=== PATIENT | female | born 1945 | race Caucasian/White ===

== ENCOUNTER 2019-11-05 15:03 | Emergency (ER) | payer MEDICARE, SELFPAY ==
[2019-11-05 15:06] VITALS: BP 179/73; PULSE 75; RESP 20; TEMP 36.8; O2SAT 97; BMI 24.7
--- NOTE | 2019-11-05 15:14 | ED_ITS ---
Entered by Genia Carlin, acting as scribe for HPI - Abdominal Pain General: Chief Complaint: Abdominal Pain Stated Complaint: abd pain Time Seen by Provider: 11/05/19 15:14 Source: patient Mode of arrival: ambulatory History of Present Illness: HPI narrative: 74 yo female presents to ED with complaints of abdominal pain. She said this began 2 weeks ago. She said it feels like she has been punched in the stomach. She said it hurts all over but this afternoon it has settled in her RLQ. She said the pain encompasses her stomach and will even make the tops of her legs and bowels hurt. She denies nausea and vomiting. She said she has been chilling. She said when she empties her bladder it will hurt my gut . MD elicited complaint: abdominal pain Pertinent past history: diverticulitis Onset (ago): week(s) (2) Pain Consistency: constant Location: Diffuse and RLQ Severity: severe Quality: aching and other Radiation: none Associated Symptoms: Denies coffee ground emesis, constipation, GI cramping, diarrhea, dysuria, fever(s), hematochezia, hematuria, hematemesis, melena, nausea, syncope and vomiting Review of Systems General: Reports: other (negative unless marked) Const: Denies: fever, body aches, fatigue, malaise or diaphoresis Eyes: Denies: change in vision or blurry vision ENMT: Denies: throat pain, painful swallowing, hoarseness, ear pain, ear discharge, Change in hearing or nasal discharge Card: Denies: chest pain, palpitations, irregular heart rhythm, syncope, pre- syncope, shortness of breath on exertion or shortness of breath when lying down Resp: Denies: shortness of breath, productive cough, non-productive cough, wheezing, coughing up blood or chest congestion GI: Denies: nausea, vomiting, vomiting blood, coffee grounds in vomit, diarrhea, constipation, cramping, blood in stool or black tarry stool : Denies: flank pain, painful urination, urinary frequency, urinary urgency, decreased urine ouput, urinary incontinence or blood in urine Musc: Denies: neck pain, back pain, extremity pain, extremity swelling, joint pain, joint swelling, joint warmth or joint stiffness Skin/Breast: Denies: rash, skin tenderness or yellow skin Neuro: Denies: headache, numbness in extremities, weakness in extremities, changes in sensation, lack of coordination, difficulty walking, dizziness, vertigo or confusion Endo: Denies: excessive thirst, tired all the time, cold intolerance, excessive sweating, flushing or hot flashes Alfredo/Lymph: Denies: easy bruising, easy bleeding, petechiae or enlarged lymph nodes All/Imm: Denies: hives, throat swelling, tongue swelling, facial swelling or acute wheezing PFSH ED PFSH: Statuses (acute, chronic, etc) shown below reflect problem list status as previously entered and may not be historically accurate Social History Smoking and tobacco status: never smoked Procedures Intubation Mg Given: 20 Mg Given: 200 Course Vital Signs: Vital signs: Vital Signs Temperature 98.3 F 11/05/19 15:06 Pulse Rate 75 11/05/19 15:06 Respiratory Rate 18 11/05/19 15:41 Blood Pressure 179/73 11/05/19 15:06 Pulse Oximetry 98 11/05/19 15:41 MDM - Abdominal Pain MDM Narrative: Medical decision making narrative: Miriam is a very nice 74-year-old female who comes in with a 2 to 3-day history of lower abdominal pain. It is described as an ache. She has no fever, chills, no nausea or vomiting or dysuria. Her CT scan is diagnostic for diverticulitis without abscess or perforation. On exam she has no sign of peritonitis. Her labs are unremarkable except for a leukocytosis. I reviewed the case in full with Dr. Correa who assures me he can see the patient in follow-up. I did offer to admit the patient but she declines. As she is tolerating orals well I believe she can go home and take oral antibiotics. She will be given a dose of IV antibiotics before discharge as well as oral. She will follow a clear liquid diet and assures me that she will return here if she worsens. She is been made aware of the possible complications including rupture and need for surgery and she understands. She understands this can happen at home as well as in the hospital. At this time she would like to be discharged though and follow-up with Dr. Correa. Again the case was reviewed with Dr. Correa and he assures me that he will see the patient in his office for follow-up. Lab Data: Labs: Lab Results 11/05/19 11/05/19 11/05/19 Range/Units 15:30 15:30 15:41 WBC 15.2 H (4.0-10.0) 10^3/ uL RBC 4.43 (4.1-5.3) 10^6/u L Hgb 12.9 (11.5-15.3) g/dL Hct 40.5 (37.0-47.0) % MCV 91.4 (81-99) fL MCH 29.1 (28.0-34.0) pg MCHC 31.9 (30.0-36.0) g/dL RDW 12.3 (12.1-15.1) % Plt Count 359 (130-400) 10^3/c mm MPV 10.2 (7.4-10.4) fL Neut % (Auto) 72.8 % Lymph % (Auto) 15.8 % [place] % (Auto) 8.1 % Eos % (Auto) 2.4 % Baso % (Auto) 0.4 % Neut # (Auto) 11.1 H (1.8-7.7) 10^3/u L Lymph # (Auto) 2.4 (0.8-4.8) 10^3/u L [place] # (Auto) 1.2 H (0.2-0.9) 10^3/u L Eos # (Auto) 0.4 (0.0-0.8) 10^3/u L Baso # (Auto) 0.1 (0.0-0.1) 10^3/u L Nucleated RBC % (a uto) 0 % Nucleated RBCs # 0.0 /100WBC Sodium 137 (136-145) mmol/L Potassium 4.0 (3.5-5.1) mmol/L Chloride 99 (98-107) mmol/L Carbon Dioxide 25 (22-29) mmol/L Anion Gap 17.0 (5-19) BUN 11 (8-23) mg/dL Creatinine 0.7 (0.5-0.9) mg/dL Glucose 108 H (74-106) mg/dL Calcium 9.9 (8.8-10.2) mg/Dl Magnesium 2.3 (1.7-2.3) mg/dL Total Bilirubin 0.2 (0.15-1.2) mg/dL AST 25 (0-32) U/L ALT 25 (0-33) U/L Alkaline Phosphata se 159 H (35-105) IU/L Total Protein 8.0 (6.6-8.7) g/dL Albumin 4.7 (3.5-5.2) g/dL Globulin 3.3 (1.3-4.6) g/dL Lipase 37 (13-60) U/L Urine Color Yellow (Yellow) Urine Appearance Clear (CLEAR) Urine pH 6 (5-7) Ur Specific Gravit y 1.010 (1.005-1.030) Urine Protein Neg (Negative) Urine Glucose (UA) Norm (Normal) Urine Ketones 1+ H (Negative) Urine Occult Blood 2+ H (Negative) Urine Nitrate Negative (Negative) Urine Bilirubin Neg (NEGATIVE) Urine Urobilinogen Norm (Negative) mg/dL Ur Leukocyte Chrissy ase Trace H (Negative) Urine RBC 0-4 H (0-2) /hpf Urine WBC 5-10 H (0-5) /hpf Ur Squamous Epith Cells 10-15 H (0-5) Urine Bacteria 2+ H (NONE) Discharge Plan Discharge Patient Disposition: Home, Self-Care Clinical Impression: Diverticulitis Condition: Stable Prescriptions: New Zofran 4 mg tablet 4 mg PO DAILY PRN (Reason: nausea and vomiting) 5 Days RF: 0 Flagyl 500 mg tablet 500 mg PO TID 10 Days Qty: 30 RF: 0 Cipro 500 mg tablet 500 mg PO BID Qty: 20 RF: 0 [place] 5-325 mg tablet 1 tab PO Q8H Qty: 10 RF: 0 No Action metoprolol succinate 50 mg tablet extended release 24 hr 25 mg PO BID RF: 0 meloxicam 15 mg tablet 15 mg PO DAILY RF: 0 simvastatin 40 mg tablet 40 mg PO DAILY RF: 0 levothyroxine 75 mcg tablet 75 mcg PO DAILY RF: 0 citalopram 20 mg tablet 20 mg PO DAILY RF: 0 pantoprazole 40 mg tablet,delayed release (DR/EC) 40 mg PO DAILY RF: 0 montelukast 10 mg tablet 10 mg PO DAILY RF: 0 zolpidem 10 mg tablet 10 mg PO BEDTIME PRN (Reason: Sleep) RF: 0 metformin 500 mg tablet extended release 24 hr 500 mg PO DAILY RF: 0 multivitamin Tablet 1 tab PO DAILY RF: 0 Kiana Allergy 180 mg Tablet 180 mg PO BID PRN (Reason: unknown) RF: 0 Aspir-81 81 mg Tablet,Delayed Release (Dr/Ec) 81 mg PO DAILY RF: 0 Discharge Orders: Discharge Order (Routine); Ordered 11/05/19 Ordered By: Bebe Francois Referrals: Jem Correa MD [Family Provider] - Discharge Diet: Follow a clear liquid diet and do not advance until instructed further by Dr. Correa. Discharge Activity: Increase activity as tolerated Patient Instructions: Diverticulitis, Diverticulitis (ED), Diverticulitis Diet (ED) Activity Restrictions/Additional Instructions: Please return to the ER immediately for any of the signs or symptoms listed on your discharge instruction sheets, worsening/changing of your symptoms, you are not getting better as quickly as expected, or for ANY other cause or concerns. You have been offered admission to the hospital but have declined so if your symptoms change or worsen in any way please return to the ER immediately for recheck and further evaluation and care. Be certain to follow-up with Dr. Correa on Saturday or return to the ER sooner if your symptoms worsen. Follow a clear liquid diet until instructed further by Dr. Correa. Coding Level of Care Code ED Welder/Fabricator for g Fwd The documentation recorded by the Raegan prado Valerie R, accurately reflects the service I personally performed and the decisions made by Alessandro garibay Eli N Nov 05, 2019 15:03
--- NOTE | 2019-11-05 15:34 | CT_ITS ---
WS: [id number] CT scan of the abdomen and pelvis with IV contrast. Additional two-dimensional coronal and sagittal r econstruction was performed. 11/05/2019 Clinical Data: Abdominal Pain Comparison: CT abdomen and pelvis, 01/07/2016. DLP: 638.[address] scans at [facility] use at least one of these dose optimization techniques: automat ed exposure control; mA and/or kV adjustment per patient size (includes targeted exams where dose is matched to clinical indication); or iterative reconstruction. Findings: The lower lungs show no nodules, masses or effusions. There is a small hiatal hernia. The liver, gallbladder, spleen, adrenal glands and pancreas are normal. The kidneys show equal bilateral contrast excretion with dental cortical cyst but no masses, hydronep hrosis or renal calculi.. The abdominal aorta is normal in size with minimal calcification in the wall.. No appendicitis is seen. No adenopathy, ascites, mass, obstruction or free air is seen. The sigmoid c olon shows pericolic stranding and thickening consistent with acute diverticulitis. There is no absce ss. The bladder and bladder are unremarkable. No inguinal hernia is seen. The bones of the lower thorax, lumbar spine, pelvis, and hips are normal. CT/CT abdomen pelvis w con* [id number] Impression: Sigmoid diverticulitis without abscess or free air.
[2019-11-05] MEDS: sodium chloride 0.9% 1,000 ML 999 ML IV (15:40)
[2019-11-05 15:41] VITALS: RESP 18; O2SAT 98
[2019-11-05] MEDS: morphine 4 mg/mL SDV 1 mL IVP (15:41)
[2019-11-05] MEDS: ondansetron 2 mg/ML SDV 2 mL 4 MG IVP (15:42)
[2019-11-05 15:47] LABS: Basophils # 0.1 10^3/uL (0.0-0.1); Basophils % 0.4 %; Eosinophils # 0.4 10^3/uL (0.0-0.8); Eosinophils % 2.4 %; Hematocrit 40.5 % (37.0-47.0); Hemoglobin 12.9 g/dL (11.5-15.3); Lymphocytes # 2.4 10^3/uL (0.8-4.8); Lymphocytes % 15.8 %; Mean Corpuscular HGB Conc 31.9 g/dL (30.0-36.0); Mean Corpuscular Hemoglobin 29.1 pg (28.0-34.0); Mean Corpuscular Volume 91.4 fL (81-99); Mean Platelet Volume 10.2 fL (7.4-10.4); Monocytes # 1.2 10^3/uL (0.2-0.9); Monocytes % 8.1 %; Neutrophils # 11.1 10^3/uL (1.8-7.7); Neutrophils % 72.8 %; Nucleated Red Blood Cells % 0 %; Platelet Count 359 10^3/cmm (130-400); Red Blood Count 4.43 10^6/uL (4.1-5.3); Red Cell Distribution Width 12.3 % (12.1-15.1); White Blood Count 15.2 10^3/uL (4.0-10.0)
[2019-11-05 16:01] LABS: Alanine Aminotransferase 25 U/L (0-33); Albumin Level 4.7 g/dL (3.5-5.2); Alkaline Phosphatase 159 IU/L (35-105); Aspartate Amino Transferase 25 U/L (0-32); Blood Urea Nitrogen 11 mg/dL (8-23); Calcium 9.9 mg/Dl (8.8-10.2); Carbon Dioxide 25 mmol/L (22-29); Chloride 99 mmol/L (98-107); Globulin 3.3 g/dL (1.3-4.6); Glucose 108 mg/dL (74-106); Lipase 37 U/L (13-60); Magnesium 2.3 mg/dL (1.7-2.3); Sodium 137 mmol/L (136-145); Total Bilirubin 0.2 mg/dL (0.15-1.2)
[2019-11-05 16:01] LABS: Add Urine Microscopic? YES; Bilirubin Urine Neg (NEGATIVE); Blood Urine 2+ (Negative); Glucose Urine UA Norm (Normal); Ketones Urine 1+ (Negative); Leukocyte Esterase Urine Trace (Negative); Nitrate Urine Negative (Negative); Protein Urine Neg (Negative); Urine Appearance Clear (CLEAR); Urine Color Yellow (Yellow); Urobilinogen Urine Norm (Negative); pH Urine 6 (5-7)
[2019-11-05 16:17] LABS: Bacteria Urine 2+; RBC Urine 0-4 /hpf (0-2)
[2019-11-05 16:18] LABS: Add Urine Culture? No
[2019-11-05] MEDS: iohexol 300 mg/mL 100 mL Btl 95 ML IV (16:18)
[2019-11-05] MEDS: piperacillin-tazobactam 3.375 GM in sodium chloride 0.9% (plus) 50 ML IV (16:58)
[2019-11-05] MEDS: ciprofloxacin 500 mg Tablet PO (17:20)
[2019-11-05] MEDS: metroNIDAZOLE 500 MG Tablet PO (17:22)
[2019-11-05 17:54] VITALS: BP 105/61; PULSE 68; RESP 20; O2SAT 98
== END 2019-11-05 17:55 | disposition home or self-care (01) ==
PROVIDERS: Emergency Provider Emergency Medicine; Family Provider Family Medicine
DX: K57.92 Diverticulitis of intestine, part unspecified, without perforation or abscess without bleeding (principal); Z79.84 Long term (current) use of oral hypoglycemic drugs; Z79.82 Long term (current) use of aspirin
CPT/HCPCS: 74177; 80053; 81003; 83690; 83735; 85025; 96360; 96365; 96374; 96375; 99282; J2270; J2405; J2543; J7030; Q9967

== ENCOUNTER → 2020-02-24 10:42 | Outpatient (BNVA) | payer MEDICARE, SELFPAY | PROVIDERS: Family Provider Family Medicine; Referring Provider Family Medicine; Visit Provider Orthopaedic Surgery | DX: M25.542 Pain in joints of left hand (principal); M13.842 Other specified arthritis, left hand | CPT/HCPCS: 73130 ==

== ENCOUNTER 2020-02-24 11:37 | Outpatient (CLI) | payer MEDICARE, SELFPAY | END 2020-02-24 11:38 | disposition home or self-care (01) | LOC: SPT 11:39 | PROVIDERS: Family Provider Family Medicine; Visit Provider Orthopaedic Surgery | DX: Z46.89 Encounter for fitting and adjustment of other specified devices (principal); M18.12 Unilateral primary osteoarthritis of first carpometacarpal joint, left hand | CPT/HCPCS: 73130; L3924 ==

== ENCOUNTER 2020-08-08 10:01 | Outpatient (CLI) | payer MEDICARE, SELFPAY ==
--- NOTE | 2020-08-08 10:08 | CT_ITS ---
WS: [id number] LDCT LUNG CANCER SCREENING HISTORY: HX OF TOBACCO USE TECHNIQUE: Axial imaging performed from the apices to 1 cm below the costophrenic angles. Coronal and sagittal reformats are submitted with axial MIP series. All CT scans at [facility] use at least one of these dose optimization techniques: automated exposure control; mA and/or kV adjustment per patient size (includes targeted exams where dose is matched to clinical indication); or iterativ e reconstruction. DLP: 55.05 mGy.cm DIvol: 1.52 mGy COMPARISON: 04/10/2011 Diagnostic quality: Satisfactory Lung Nodules: No pulmonary nodule or endobronchial lesions. Lungs: Hyperexpanded lungs. Minimal bronchiectasis medial RIGHT upper lobe. Linear scar at the RIGHT middle lobe. Heart: Normal size heart. No pericardial effusion. No significant coronary artery calcification. Other findings: Mild atherosclerosis aorta. CT/CT lung screening [id number] IMPRESSION: LUNG-RADS: 1-Negative FOLLOW UP: 12 Month: Continue annual screening with LDCT OTHER FINDINGS (S MODIFIER): None.
== END 2020-08-08 10:02 | disposition home or self-care (01) ==
PROVIDERS: PCP Family Medicine; Visit Provider Family Medicine
DX: Z12.2 Encounter for screening for malignant neoplasm of respiratory organs (principal); Z87.891 Personal history of nicotine dependence; I70.0 Atherosclerosis of aorta
CPT/HCPCS: G0297

== ENCOUNTER 2021-06-09 08:34 | Outpatient (CLI) | payer MEDICARE, SELFPAY ==
[2021-06-09 09:13] VITALS: BP 136/72; PULSE 76; RESP 14; TEMP 37.2; O2SAT 93
[2021-06-09 09:28] VITALS: BP 147/86; PULSE 73; RESP 16; O2SAT 92
[2021-06-09 10:33] VITALS: BP 140/78; PULSE 65; TEMP 36.6; O2SAT 95
== END 2021-06-09 08:35 | disposition home or self-care (01) ==
LOC: OPS 08:36
PROVIDERS: PCP Family Medicine; Visit Provider Nurse Practitioner
DX: U07.1 COVID-19 (principal)
CPT/HCPCS: 96365

== ENCOUNTER 2022-05-01 13:00 | Outpatient (CLI) | payer MEDICARE, SELFPAY | END 2022-05-01 13:01 | disposition home or self-care (01) | LOC: SLEEP 05-02 12:48 | PROVIDERS: PCP Family Medicine; Visit Provider Family Medicine | DX: G47.10 Hypersomnia, unspecified (principal); G47.33 Obstructive sleep apnea (adult) (pediatric) | CPT/HCPCS: G0399 ==

== ENCOUNTER 2022-08-03 13:40 | Outpatient (CLI) | payer MEDICARE, SELFPAY ==
--- NOTE | 2022-08-03 13:44 | XR_ITS ---
WS: [id number] DEXA (DUAL ENERGY X-RAY ABSORPTIOMETRY) Bone mineral density was performed using a Whittl machine. HISTORY: POSTMENOPAUSAL COMPARISON: None available. Lumbar spine BMD (L1-L4): 0.942 g/cm2 T score: -2.0 Z score: -0.1 Total hip BMD: Left: 0.649 g/cm2. T score: -2.8 Z score: -1.0 Right: 0.696 g/cm2. T score: -2.5 Z score: -0.6 10 year probability of a major osteoporotic fracture is 45.7%. XR/XR DEXA axial skeleton* [id number] IMPRESSION: OSTEOPOROSIS based upon the WHO classification for females.
== END 2022-08-03 13:41 | disposition home or self-care (01) ==
LOC: RAD 13:40
PROVIDERS: PCP Family Medicine; Visit Provider Nurse Practitioner Family
DX: Z78.0 Asymptomatic menopausal state (principal); M81.0 Age-related osteoporosis without current pathological fracture
CPT/HCPCS: 77080

== ENCOUNTER 2023-03-13 08:03 | Outpatient (CLI) | payer MEDICARE, SELFPAY ==
--- NOTE | 2023-03-13 | ECG_ITS ---
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 Interpretive Statements NAME OF STUDY: EXERCISE SESTAMIBI STRESS TEST INDICATION: [Chest Pain, ] EXERCISE DATA: The patient was exercised by Robb protocol. Baseline heart rate was 80 beats per minute. Baseline blood pressure was 157/81 millimeters of mercury. Target heart rate was 122 beats per minute. Maximum heart rate achieved was 142 which was 116% of the target heart rate. Maximum blood pressure was 207/61 millimeters of mercury. Total exercise time was 4 minutes 20 seconds. Maximum METs achieved was 7. The reason for ending the test was maximal effort achieved. The patient complained of shortness of breath during the stress test, which then resolved at the end of the test. ELECTROCARDIOGRAM: BASELINE: Showed sinus rhythm, normal axis, with LVH changes. [] EXERCISE: At the peak exercise level, [] borderline [address] depressions in inferior leads II, III, aVF and leads V5 V6. [] RECOVERY: During the recovery period, heart rate dropped appropriately. No significant ST-T changes in the recovery suggestive of ischemia noted. [] CONCLUSION: 1. Exercise capacity is fair. 2. Heart rate response was appropriate 3. Blood pressure response was hypertensive. 4. Symptoms not suggestive of ischemia. 5. Electrocardiogram portion of the stress test has borderline ST depressions seen in above mentioned leads, however will rely on imaging results as has baseline LVH changes on EKG. 6. Nuclear scan will be documented separately. Electronically Signed On 03-16-2023 22:04:29 CDT by Dannie Linda M.D. [id number]
[2023-03-13 09:21] VITALS: BMI 23.9
--- NOTE | 2023-03-13 09:22 | NMCV_ITS ---
NM vicente perf SPECT r/s* [id number] Lucas Domingo Age: 77 Gender: F : 1945 Exam Date: 03/13/2023 09:22 Ordering Phys: Triny Bar Technologist: AYAN Olmedo Exam Location: [facility] Indications: CHEST PAIN STRESS TEST Please see separate stress test report in [facility] for full findings IMAGE PROTOCOL Rest/Stress 1 Exercise Day Radiopharmaceutical Dose (mCi) Administration Site Administered by Rest: Tc-99m 10.3 IV AYAN Richard Sestamibi Stress:Tc-99m 32.6 IV AYAN Richard Sestamibi Rest: 13-Mar-2023 60 Discovery 630 Stress: 13-Mar-2023 30 Discovery 630 Radiopharmaceutical was injected at 89 % maximum heart rate. Images obtained in supine and prone position. SPECT RESULTS Technical Quality: Excellent Raw Data Analysis: Normal Image Corrections: No attenuation or motion correction applied Summed Stress Score: 2 Summed Rest Score: 0 Summed Difference Score: 2 PERFUSION FINDINGS SPECT images demonstrate homogeneous tracer distribution throughout the myocardium. FUNCTIONAL RESULTS (calculated via Gated SPECT) Stress Image LV EF (%): 95 Stress EDV (mL):64 TID: 0.7 Stress ESV (mL):3 FUNCTIONAL FINDINGS: There is normal left ventricular systolic function. IMPRESSIONS 1. Normal myocardial perfusion imaging with no evidence of ischemia 2. LV systolic function is normal. Dannie Linda MD (Electronically Signed) Final Date: 14 Mar 2023 13:11 S
[2023-03-13 10:25] VITALS: BP 166/87; PULSE 90
== END 2023-03-13 08:04 | disposition home or self-care (01) ==
LOC: CDL 08:07
PROVIDERS: PCP Family Medicine; Visit Provider Physician Assistant
DX: R07.9 Chest pain, unspecified (principal)
CPT/HCPCS: 36415; 78452; 93017; A9500

== ENCOUNTER 2023-07-14 08:22 | Emergency (ER) | payer MEDICARE, SELFPAY ==
[2023-07-14 08:23] VITALS: BP 139/82; PULSE 100; RESP 19; TEMP 37.7; O2SAT 92; BMI 23.0
--- NOTE | 2023-07-14 08:30 | ECG_ITS ---
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 Measurements Intervals [place] Rate: 97 P: 52 HI: 193 QRS: 3 QRSD: 87 T: 30 QT: 355 QTc: 452 Interpretive Statements SINUS RHYTHM LEFT VENTRICULAR HYPERTROPHY AND ST-T CHANGE [VOLTAGE CRITERIA PLUS ST/T ABNORMALITY] Compared to ECG 01/30/2019 13:50:29 Sinus bradycardia no longer present ST (T wave) deviation still present Electronically Signed On 07-14-2023 11:59:11 CDT by Esthela Adhikari M.D. [id number]
--- NOTE | 2023-07-14 08:31 | XRR_ITS ---
PROCEDURE INFORMATION: Exam: XR Chest Exam date and time: 07/14/2023 9:06 AM Age: 77 years old Clinical indication: Shortness of breath; Prior surgery; Surgery date: 6+ months; Surgery type: Carlos mastectomy; Additional info: SOB TECHNIQUE: Imaging protocol: Radiologic exam of the chest. Views: 1 view. COMPARISON: CT lung screening [id number] 08/08/2020 10:15 AM FINDINGS: Tubes, catheters and devices: Surgical clips projecting over the lower left lateral chest wall. Lungs: Unremarkable. No consolidation. Pleural spaces: Unremarkable. No pleural effusion. No pneumothorax. Heart/Mediastinum: Unremarkable. No cardiomegaly. Bones/joints: Mild thoracic scoliosis. XR/XR chest 1V portable [id number] IMPRESSION: No acute disease.
[2023-07-14] MEDS: acetaminophen 500 mg Tablet 1000 MG PO (08:38)
--- NOTE | 2023-07-14 08:39 | ED_ITS ---
HPI - SOB/Dyspnea General: Chief Complaint: Shortness of Breath/Dyspnea Stated Complaint: SOB Time Seen by Provider: 07/14/23 08:24 Source: patient Mode of arrival: ambulatory Limitations: no limitations History of Present Illness: HPI Narrative: 77-year-old female has a history of COPD states she has been on a cruise just got back yesterday she states that she started having fevers chills body aches along with nonproductive cough. States she has had some increasing wheezing and shortness of breath as well. Denies any vomiting or diarrhea denies any worsening improving factors. Associated symptoms: Reports fever(s); Deny abdominal pain, chest pain, nausea or vomiting Review of Systems Const: Reports: fever(s), chills and body aches; Denies: change in appetite ENMT: Reports: throat pain; Denies: dental pain Card: Denies: chest pain Resp: Reports: dyspnea, non-productive cough and wheezing GI: Denies: abdominal pain, nausea, vomiting or diarrhea : Denies: dysuria Musc: Denies: neck pain or back pain Skin/Breast: Denies: rash Neuro: Denies: headache(s) PFSH ED PFSH: Social History Smoking and tobacco status: never smoked Alcohol intake: never Substance/Drug Use: never Physical Exam Const: COMMON NORMALS: patient oriented x3 HENMT: COMMON NORMALS: normocephalic and atraumatic HEAD & SCALP: normocephalic and atraumatic Eye: COMMON NORMALS: Equal, round and reactive pupils present and EOMs intact bilaterally PUPIL: Yes Equal, round and reactive pupils present Neck/C-Spine: COMMON NORMALS: full ROM and supple Chest: COMMONS NORMALS: normal inspection of the chest and normal palpation of entire chest wall Resp: COMMON NORMALS: normal respiratory effort, No retractions and No use of accessory muscles AUSCULTATION: wheezes Cardio: COMMON NORMALS: regular rate, regular rhythm and No murmurs present (Cardio) RATE: regular rate RHYTHM: regular rhythm GI: COMMON NORMALS: Normal to inspection, nondistended, normoactive bowel sounds present, Soft to palpation, non-tender and no masses PALPATION: Yes Soft to palpation Extremity: COMMON NORMALS: normal to inspection and full ROM Neuro: COMMON NORMALS: patient oriented x3, moves all extremities and no focal motor deficits Psych: COMMON NORMALS: mental status grossly normal, Normal thought process present and cooperative THOUGHT PROCESS: Normal thought process present Skin: COMMON NORMALS: no rashes or lesions noted and no wounds GENERAL SKIN EXAM: no rashes or lesions noted Course Vital Signs: Vital signs: Vital Signs Temperature 99.8 F H 07/14/23 08:23 Pulse Rate 87 07/14/23 09:05 Respiratory Rate 18 07/14/23 09:01 Blood Pressure 131/70 07/14/23 08:58 Pulse Oximetry 92 07/14/23 09:01 Oxygen Delivery Me thod Room Air 07/14/23 09:01 MDM - SOB/Dyspnea Medical Decision Making Patient presents for likely upper restaurant infection while in the bronchitis she is improved here after breathing treatment we will place her on albuterol along with prednisone and Keflex. We will send off a full viral panel as well she is stable for discharge she is to follow-up with PCP and return if worsening she understands agrees plan. Medical Records I reviewed the patient's medical records. Lab Data I reviewed the patient's lab results. 07/14/23 08:45 07/14/23 08:45 Labs/Radiology: Radiology Impressions Chest X-Ray 07/14/23 08:31 IMPRESSION: No acute disease. Laboratory Results WBC 9.15 10^3/uL (3.29-11.43) 07/14/23 08:45 RBC 4.14 10^6/uL (3.85-5.65) 07/14/23 08:45 Hgb 11.50 g/dL (11.27-16.99) 07/14/23 08:45 Hct 36.8 % (36-47) 07/14/23 08:45 MCV 88.9 fl (85-98) 07/14/23 08:45 MCH 27.8 pg (27-33) 07/14/23 08:45 MCHC 31.3 g/dL (30-55) 07/14/23 08:45 RDW 13.5 % (12.1-15.1) 07/14/23 08:45 Plt Count 222 10^3/cmm (157-399) 07/14/23 08:45 MPV 10.3 fL (7.4-10.4) 07/14/23 08:45 Neut % (Auto) 76.8 % 07/14/23 08:45 Lymph % (Auto) 13.9 % 07/14/23 08:45 [place] % (Auto) 8.7 % 07/14/23 08:45 Eos % (Auto) 0.0 % 07/14/23 08:45 Baso % (Auto) 0.2 % 07/14/23 08:45 Neut # (Auto) 7.02 10^3/uL (1.8-7.7) 07/14/23 08:45 Lymph # (Auto) 1.3 10^3/uL (0.8-4.8) 07/14/23 08:45 [place] # (Auto) 0.8 10^3/uL (0.2-0.9) 07/14/23 08:45 Eos # (Auto) 0.0 10^3/uL (0.0-0.8) 07/14/23 08:45 Baso # (Auto) 0.0 10^3/uL (0.0-0.1) 07/14/23 08:45 Nucleated RBC % (auto) 0 % 07/14/23 08:45 Nucleated RBCs # 0.0 /100WBC 07/14/23 08:45 Sodium 137 mmol/L (136-145) 07/14/23 08:45 Potassium 3.9 mmol/L (3.5-5.1) 07/14/23 08:45 Chloride 102 mmol/L (98-107) 07/14/23 08:45 Carbon Dioxide 24 mmol/L (22-29) 07/14/23 08:45 Anion Gap 14.9 (5-19) 07/14/23 08:45 BUN 12 mg/dL (8-23) 07/14/23 08:45 Creatinine 0.8 mg/dL (0.5-0.9) 07/14/23 08:45 GFR Calculation Not Reportable 07/14/23 08:45 Glucose 141 mg/dL (65-115) H 07/14/23 08:45 Calculated Osmolality 286 mOsm/kg (285-295) 07/14/23 08:45 Calcium 9.1 mg/dL (8.5-10.5) 07/14/23 08:45 Total Bilirubin 0.3 mg/dL (0.15-1.2) 07/14/23 08:45 AST 24 U/L (0-32) 07/14/23 08:45 ALT 20 U/L (0-33) 07/14/23 08:45 Alkaline Phosphatase 113 U/L (35-105) H 07/14/23 08:45 NT-Pro-B Natriuret Pep 180 pg/mL (0-450) 07/14/23 08:45 Total Protein 7.5 g/dL (6.6-8.7) 07/14/23 08:45 Albumin 4.2 g/dL (3.5-5.2) 07/14/23 08:45 Globulin 3.3 g/dL (1.3-4.6) 07/14/23 08:45 SARS-CoV-2 Ag (Rapid) Negative (Negative) 07/14/23 08:40 All radiology interpretation(s) finalized by discharge EKG Data EKG 1: I personally reviewed and interpreted this EKG as follows: EKG Interpretation Date: 07/14/23 EKG interpretation time: 08:33 Interpretation: nsr hr [address] or t wave abnormalities qrs 87 qtc 409 Discharge Plan Discharge Patient Disposition: Home Clinical Impression: Upper respiratory infection Condition: Stable Prescriptions: New cephalexin 500 mg capsule 500 mg PO TID 7 Days Qty: 21 0RF prednisone 50 mg tablet 50 mg PO DAILY Qty: 5 0RF albuterol sulfate 90 mcg/actuation HFA aerosol inhaler 2 inh INHALATION Q6H PRN (Reason: shortness of breath or wheezing) Qty: 8 0RF No Action (DME) CMC brace Qty: 1 0RF Rx Instructions: As directed metoprolol succinate 50 mg tablet extended release 24 hr 50 mg PO DAILY levothyroxine 75 mcg tablet 75 mcg PO DAILY citalopram 20 mg tablet 20 mg PO DAILY montelukast 10 mg tablet 10 mg PO DAILY zolpidem 10 mg tablet 10 mg PO BEDTIME PRN (Reason: Sleep) multivitamin Tablet 1 tab PO DAILY fexofenadine [Kiana Allergy] 180 mg Tablet 180 mg PO DAILY atorvastatin 40 mg tablet 40 mg PO DAILY amlodipine 5 mg tablet 5 mg PO DAILY Tylenol Ex Str Rapid Release 500 mg Tablet 1,000 mg PO Q6H PRN (Reason: Pain) esomeprazole magnesium 40 mg capsule,delayed release(DR/EC) 40 mg PO DAILY ibuprofen 200 mg Tablet 400 - 800 mg PO Q6H PRN (Reason: Pain) metformin 750 mg tablet extended release 24 hr 750 mg PO QAM Discharge Orders: Discharge ED (Routine); Ordered 07/14/23 Ordered By: Danielle Oneil Referrals: Jem Correa MD [Primary Care Provider] - 1-3 days Discharge Diet: Advance as tolerated Discharge Activity: Resume usual activity Patient Instructions: Upper Respiratory Infection (ED) Coding Level of Care Code ED Production Team Advisor for Desmond Keenan
[2023-07-14] MEDS: methylPREDNISolone sod succ 125 MG in water for injection-sterile 2 ML 24 MG IVP (08:55)
[2023-07-14 08:58] VITALS: BP 131/70; PULSE 90; RESP 24; O2SAT 91
[2023-07-14 09:01] VITALS: PULSE 92; RESP 18; O2SAT 92
[2023-07-14 09:02] LABS: Basophils % 0.2 %; Hematocrit 36.8 % (36-47); Lymphocytes # 1.3 10^3/uL (0.8-4.8); Lymphocytes % 13.9 %; Mean Corpuscular HGB Conc 31.3 g/dL (30-55); Mean Corpuscular Hemoglobin 27.8 pg (27-33); Mean Corpuscular Volume 88.9 fl (85-98); Mean Platelet Volume 10.3 fL (7.4-10.4); Monocytes # 0.8 10^3/uL (0.2-0.9); Monocytes % 8.7 %; Neutrophils # 7.02 10^3/uL (1.8-7.7); Neutrophils % 76.8 %; Nucleated Red Blood Cells % 0 %; Platelet Count 222 10^3/cmm (157-399); Red Blood Count 4.14 10^6/uL (3.85-5.65); Red Cell Distribution Width 13.5 % (12.1-15.1); White Blood Count 9.15 10^3/uL (3.29-11.43)
[2023-07-14] MEDS: ipratropium-albuterol 3 mL Neb INHALATION (09:04)
[2023-07-14 09:05] VITALS: PULSE 87
--- NOTE | 2023-07-14 09:06 | PC.PHAR ---
pt states she takes care of her own medications-pt states she took am meds and knows her metformin is a am med but unsure which other ones are taken in the am
[2023-07-14 09:33] LABS: Alanine Aminotransferase 20 U/L (0-33); Albumin Level 4.2 g/dL (3.5-5.2); Alkaline Phosphatase 113 U/L (35-105); Anion Gap 14.9 (5-19); Aspartate Amino Transferase 24 U/L (0-32); Blood Urea Nitrogen 12 mg/dL (8-23); Calcium 9.1 mg/dL (8.5-10.5); Carbon Dioxide 24 mmol/L (22-29); Chloride 102 mmol/L (98-107); Creatinine Clr Calc Pharmacy 51.9698; Globulin 3.3 g/dL (1.3-4.6); Glucose 141 mg/dL (65-115); NT Pro B Type Natriuretic Pept 180 pg/mL (0-450); Osmolality Calculated 286 mOsm/kg (285-295); Potassium 3.9 mmol/L (3.5-5.1); Sodium 137 mmol/L (136-145); Total Bilirubin 0.3 mg/dL (0.15-1.2); Total Protein 7.5 g/dL (6.6-8.7)
[2023-07-14 09:38] LABS: SARS Covid-2 Antigen Negative (Negative)
[2023-07-14 12:14] LABS: Adenovirus Not Detected (NOT DETECT); Chlamydia Pneumoniae Not Detected (NOT DETECT); Coronavirus 229E,HKU1,NL63,OC4 Not Detected (NOT DETECT); Human Metapneumovirus Not Detected (NOT DETECT); Human Rhinovirus/Enterovirus Not Detected (NOT DETECT); Influenza A Detected (NOT DETECT); Influenza A H1 Not Detected (NOT DETECT); Influenza A H1-2009 Detected (NOT DETECT); Influenza A H3 Not Detected (NOT DETECT); Influenza B Not Detected (NOT DETECT); Mycoplasma Pneumoniae Not Detected (NOT DETECT); Parainfluenza Virus Type 1 Not Detected (NOT DETECT); Parainfluenza Virus Type 2 Not Detected (NOT DETECT); Parainfluenza Virus Type 3 Not Detected (NOT DETECT); Parainfluenza Virus Type 4 Not Detected (NOT DETECT); Respiratory Syncytial Virus A Not Detected (NOT DETECT); Respiratory Syncytial Virus B Not Detected (NOT DETECT); SARS-COV-2 Not Detected (NOT DETECT)
== END 2023-07-14 10:02 | disposition home or self-care (01) ==
PROVIDERS: Emergency Provider Emergency Medicine; PCP Family Medicine
DX: J06.9 Acute upper respiratory infection, unspecified (principal); Z79.84 Long term (current) use of oral hypoglycemic drugs; Z20.822 Contact with and (suspected) exposure to COVID-19
CPT/HCPCS: 36415; 71045; 80053; 83880; 85025; 87040; 87426; 87486; 87581; 87633; 93005; 94640; 96374; 99285; J2930

== ENCOUNTER → 2024-08-01 15:59 | Outpatient (BNVA) | payer MEDICARE, SELFPAY | PROVIDERS: PCP Family Medicine; Visit Provider Nurse Practitioner Family | DX: Z20.828 Contact with and (suspected) exposure to other viral communicable diseases (principal) | CPT/HCPCS: 87400 ==

== ENCOUNTER → 2024-11-17 11:00 | Outpatient (BNVA) | payer MEDICARE, SELFPAY | PROVIDERS: PCP Family Medicine; Referring Provider Family Medicine; Visit Provider Psychiatry & Neurology Neurology | DX: M79.602 Pain in left arm (principal); G56.22 Lesion of ulnar nerve, left upper limb | CPT/HCPCS: 95911 ==